=== PATIENT | male | born 1975 | race Caucasian/White ===

== ENCOUNTER 2018-11-12 22:02 | Emergency (ER) | payer MEDICAID ==
[~2018-11-12] VITALS: Ht 180.3 cm; Wt 104.3 kg
[2018-11-12 22:08] VITALS: BP_SYST 146
--- NOTE | 2018-11-12 22:12 | NUR ---
Patient triaged and placed in waiting room. VSS and patient appears in no acute distress at this time. Accompanied by family, awaiting available bed, and MD notified of need for MSE.
--- NOTE | 2018-11-12 22:14 | NUR ---
Patient to ER bed 07 for evaluation. Side rails up. Report given to Jackie AYALA.
--- NOTE | 2018-11-12 22:16 | NUR ---
Pt AAOx4 ambulated into ED c/o R great toenail avulsion s/p stubbing toe on metal bed frame prior to arrival. + CMS, denies pain, denies taking medication. Tetanus shot up to date. No other injuries/complaints per pt/noted. Will continue to monitor.
--- NOTE | 2018-11-12 23:00 | NUR ---
ER Dr. Peng at bedside examining patient.
[2018-11-12] MEDS ORDERED: MORPHINE 4 MG/ML INJ. SYRINGE IM ONE (23:15)
[2018-11-12] MEDS ORDERED: BACITRACIN 1 GM OINT TP ONE ×2 (23:29→23:30)
--- NOTE | 2018-11-12 23:42 | NUR ---
Patient's Right greater toe cleaned with Normal saline, Bacitracin applied and rolled gauze placed. Patient tolerated well. Will continue to monitor.
[2018-11-13 00:04] VITALS: BP_SYST 146
--- NOTE | 2018-11-13 00:04 | NUR ---
Patient given written and verbal discharge instructions and verbalizes understanding. ER MD discussed with patient the results and treatment provided. Patient in stable condition. ID arm band removed. Rx of Keflex and Motrin given. Patient educated on pain management and to follow up with PMD in 2-3 days. Pain Scale 0/10 Opportunity for questions provided and answered. Medication side effect fact sheet provided.
== END 2018-11-13 00:04 | disposition home or self-care (01) ==
LOC: SED 22:02
DX: S91.201A Unspecified open wound of right great toe with damage to nail, initial encounter (principal); W22.8XXA Striking against or struck by other objects, initial encounter; Y93.89 Activity, other specified; Y92.009 Unspecified place in unspecified non-institutional (private) residence as the place of occurrence of the external cause; Y99.8 Other external cause status
CPT/HCPCS: 73660; 96372; 99283; J2270

== ENCOUNTER 2019-07-12 03:46 | Emergency (ER) | payer MEDICAID ==
[~2019-07-12] VITALS: Ht 180.3 cm; Wt 108.9 kg
[2019-07-12 03:46] VITALS: BP_SYST 140
[2019-07-12] MEDS: KETOROLAC TROMETHAMINE 60 MG/2 ML VIAL IM ONE (04:19)
[2019-07-12 04:40] VITALS: BP_SYST 132
== END 2019-07-12 04:40 | disposition home or self-care (01) ==
LOC: SED 03:46
DX: R07.89 Other chest pain (principal)
CPT/HCPCS: 93005; 96372; 99283; J1885

== ENCOUNTER 2020-02-29 00:56 | Emergency (ER) | payer MEDICAID ==
[~2020-02-29] VITALS: Ht 180.3 cm; Wt 104.3 kg
[2020-02-29 01:00] VITALS: BP_SYST 140
--- NOTE | 2020-02-29 01:00 | NUR ---
Placed in room 7 . Placed on tug master, blood pressure machine and pulse oximeter. To gown for exam. Side rails up. Report given to Lissett AYALA.
--- NOTE | 2020-02-29 01:05 | NUR ---
PT AAO AND AMBULATORY C/O EPIGASTRIC PAIN THAT STARTED WEDNESDAY AND WORSENS WHEN HE LAYS DOWN TO SLEEP. PT TOOK PEPTO THIS MORNING WITHOUT RELIEF. PT REPORTS 7/10 PAIN SCALE.
--- NOTE | 2020-02-29 01:14 | NUR ---
ER at bedside examining patient.
[2020-02-29] MEDS ORDERED: NACL 0.9% 1,000 ML IV ONE (01:19)
[2020-02-29] MEDS ORDERED: PANTOPRAZOLE SODIUM 40 MG/VIAL (PROTONIX) IVP ONE (01:30)
[2020-02-29] MEDS ORDERED: MAG HYDROX/AL HYDROX/SIMETH 30 ML, DICYCLOMINE HCL 20 MG, LIDOCAINE VISCOUS 2% 15ML (PO... PO ONE ×3 (01:30)
--- NOTE | 2020-02-29 01:45 | NUR ---
PORTABLE XRAY DONE AT BEDSIDE
[2020-02-29 02:05] LABS: BILIRUBIN,URINE NEGATIVE (NEGATIVE); BLOOD, URINE NEGATIVE (NEGATIVE); CLARITY/URINE CLEAR (CLEAR); COLOR,URINE YELLOW (YELLOW); GLUCOSE,URINE NEGATIVE (NEGATIVE); KETONES,URINE NEGATIVE (NEGATIVE); LEUKOCYTE ESTERASE ,URINE NEGATIVE (NEGATIVE); NITRITE, URINE NEGATIVE (NEGATIVE); PH,URINE 6.5 (5.0-8.0); PROTEIN URINE NEGATIVE (NEGATIVE); UROBILINOGEN,URINE 0.2 (0.2-1.0)
[2020-02-29 02:07] LABS: BASOPHILS # (AUTO) 0.1 K/uL (0.0-0.2); BASOPHILS % (AUTO) 0.7 % (0.0-2.0); EOSINOPHILS # (AUTO) 0.1 K/uL (0.0-0.4); EOSINOPHILS % (AUTO) 1.5 % (0.0-4.0); HEMATOCRIT 42.2 % (36-54); HEMOGLOBIN 13.9 g/dL (14.0-18.0); LYMPHOCYTES # (AUTO) 3.4 K/uL (1.0-5.5); LYMPHOCYTES % (AUTO) 44.9 % (20.5-51.5); MEAN CORPUSCULAR HEMOGLOBIN 29 pg (27-31); MEAN CORPUSCULAR HGB CONC 33 % (32-36); MEAN CORPUSCULAR VOLUME 89 fL (79.0-98.0); MONOCYTES # (AUTO) 0.4 K/uL (0.0-1.0); MONOCYTES % (AUTO) 5.2 % (1.7-9.3); NEUTROPHILS # (AUTO) 3.6 K/uL (1.8-7.7); NEUTROPHILS % (AUTO) 47.7 % (40.0-70.0); PLATELET COUNT (AUTO) 177 K/uL (130-430); RED BLOOD CELL COUNT(AUTO) 4.74 MIL/uL (4.2-6.2); RED CELL DISTRIBUTION WIDTH 13.4 % (9.0-15.0); WHITE BLOOD COUNT (AUTO) 7.6 K/uL (4.8-10.8)
[2020-02-29 02:24] LABS: CALCIUM 9.2 mg/dL (8.4-11.0); CREATININE 0.94 mg/dL (0.55-1.30); POTASSIUM 3.8 mmol/L (3.5-5.1)
[2020-02-29 02:28] LABS: TOTAL BILIRUBIN 0.3 mg/dL (0.0-1.0)
--- NOTE | 2020-02-29 02:30 | NUR ---
PT RESTING QUIETLY IN NO DISTRESS AND AWAITING DISPOSITION.
[2020-02-29 03:09] VITALS: BP_SYST 140
--- NOTE | 2020-02-29 03:10 | NUR ---
Patient given written and verbal discharge instructions and verbalizes understanding. DR. RAMU RANGEL MD discussed with patient the results and treatment provided. Patient in stable condition. ID arm band removed. IV catheter removed intact and dressing applied, no active bleeding. Rx of PROTONIX AND BENTYL given. Patient educated on pain management and to follow up with PMD. Pain Scale 0/10. Opportunity for questions provided and answered. Medication side effect fact sheet provided.
== END 2020-02-29 03:09 | disposition home or self-care (01) ==
LOC: SED 00:56
DX: K29.60 Other gastritis without bleeding (principal); R10.13 Epigastric pain; I10 Essential (primary) hypertension
CPT/HCPCS: 36415; 71045; 80053; 81003; 83690; 83880; 84484; 85025; 93005; 96361; 96374; 99285; C9113; J2001; J7030

== ENCOUNTER 2023-05-09 21:48 | Emergency (ER) | payer MEDICAID, OTHER | END 2023-05-09 22:06 | disposition left against medical advice (07) | LOC: SED 21:48 | DX: R07.89 Other chest pain (principal); Z53.21 Procedure and treatment not carried out due to patient leaving prior to being seen by health care provider ==

== ENCOUNTER 2023-07-19 00:28 | Emergency (ER) | payer OTHER ==
[~2023-07-19] VITALS: Ht 180.3 cm; Wt 102.1 kg
[2023-07-19 00:30] VITALS: BP_SYST 161; PULSE 64; RESP 20; TEMP 98.8; O2SAT 98
[2023-07-19] MEDS: MAG-AL HYDROX/SIMETH 30 ML UDC PO ONE (01:17)
[2023-07-19] MEDS: FAMOTIDINE PF 20 MG/2 ML VIAL IVP ONE (01:27)
[2023-07-19 01:38] LABS: EOSINOPHILS # (AUTO) 0.1 K/uL (0.0-0.4); HEMOGLOBIN 13.4 g/dL (14.0-18.0); MONOCYTES # (AUTO) 0.4 K/uL (0.0-1.0); NEUTROPHILS # (AUTO) 3.7 K/uL (1.8-7.7)
[2023-07-19 01:47] LABS: BASOPHILS % (AUTO) 0.5 % (0.0-2.0); EOSINOPHILS % (AUTO) 1.1 % (0.0-4.0); HEMATOCRIT 39.6 % (36-54); LYMPHOCYTES # (AUTO) 3.3 K/uL (1.0-5.5); LYMPHOCYTES % (AUTO) 43.5 % (20.5-51.5); MEAN CORPUSCULAR HEMOGLOBIN 30 pg (27-31); MEAN CORPUSCULAR HGB CONC 34 % (32-36); MEAN CORPUSCULAR VOLUME 89 fL (79.0-98.0); MONOCYTES % (AUTO) 5.6 % (1.7-9.3); NEUTROPHILS % (AUTO) 49.3 % (40.0-70.0); PLATELET COUNT (AUTO) 178 K/uL (130-430); RED BLOOD CELL COUNT(AUTO) 4.45 MIL/uL (4.2-6.2); RED CELL DISTRIBUTION WIDTH 13.4 % (9.0-15.0); WHITE BLOOD COUNT (AUTO) 7.6 K/uL (4.8-10.8)
[2023-07-19 02:01] LABS: ALANINE AMINOTRANSFERASE 30 U/L (12-78); ALBUMIN 3.8 g/dL (3.4-4.8); ANION GAP 10 (5-15); ASPARTATE AMINOTRANSFERASE 21 U/L (10-37); CALCIUM 8.6 mg/dL (8.4-11.0); CARBON DIOXIDE 27 mmol/L (23-29); CHLORIDE 105 mmol/L (98-107); CREATININE 0.95 mg/dL (0.55-1.30); GFR AFRICAN AMERICAN 110 mL/min (>90); GFR NON AFRICAN-AMERICAN 91 mL/min (>90); GLUCOSE 97 mg/dL (74-106); POTASSIUM 4.1 mmol/L (3.5-5.1); SODIUM SERUM 142 mmol/L (136-145); TOTAL BILIRUBIN 0.3 mg/dL (0.0-1.0); TOTAL PROTEIN, SERUM 7.3 g/dL (6.4-8.3); UREA NITROGEN, BLOOD 14 mg/dL (8-21)
[2023-07-19 02:03] LABS: BILIRUBIN,DIRECT 0.1 mg/dL (0.0-0.3); LIPASE 98 U/L (16-77)
[2023-07-19] MEDS ORDERED: MORPHINE 2 MG/ML INJ. SYRINGE IVP ONE (02:30)
[2023-07-19] MEDS: MORPHINE 4 MG INJ. 4 MG/ML VIAL IVP ONE (02:47)
[2023-07-19 03:44] VITALS: BP_SYST 135; PULSE 70; RESP 18; TEMP 97.8; O2SAT 98
== END 2023-07-19 03:44 | disposition home or self-care (01) ==
LOC: SED 00:28
DX: R10.13 Epigastric pain (principal); R74.8 Abnormal levels of other serum enzymes; Z88.1 Allergy status to other antibiotic agents
CPT/HCPCS: 99285; 96374; 76705; 71045; 96375; 80076; 80048; 83690; 85025; 84484; 36415; 93005; J3490; J2270

== ENCOUNTER 2024-01-01 10:27 | Emergency (ER) | payer OTHER ==
[~2024-01-01] VITALS: Ht 180.3 cm; Wt 103.4 kg
[2024-01-01 10:27] VITALS: BP_SYST 124; PULSE 70; RESP 18; TEMP 97.2; O2SAT 95
[2024-01-01 11:05] LABS: BASOPHILS % (AUTO) 0.5 % (0.0-2.0); EOSINOPHILS # (AUTO) 0.1 K/uL (0.0-0.4); EOSINOPHILS % (AUTO) 1.4 % (0.0-4.0); HEMATOCRIT 43.4 % (36-54); HEMOGLOBIN 14.3 g/dL (14.0-18.0); LYMPHOCYTES # (AUTO) 2.7 K/uL (1.0-5.5); LYMPHOCYTES % (AUTO) 41.7 % (20.5-51.5); MEAN CORPUSCULAR HEMOGLOBIN 29 pg (27-31); MEAN CORPUSCULAR HGB CONC 33 % (32-36); MEAN CORPUSCULAR VOLUME 89 fL (79.0-98.0); MONOCYTES # (AUTO) 0.4 K/uL (0.0-1.0); MONOCYTES % (AUTO) 5.7 % (1.7-9.3); NEUTROPHILS # (AUTO) 3.3 K/uL (1.8-7.7); NEUTROPHILS % (AUTO) 50.7 % (40.0-70.0); PLATELET COUNT (AUTO) 189 K/uL (130-430); RED BLOOD CELL COUNT(AUTO) 4.87 MIL/uL (4.2-6.2); RED CELL DISTRIBUTION WIDTH 13.2 % (9.0-15.0); WHITE BLOOD COUNT (AUTO) 6.4 K/uL (4.8-10.8)
[2024-01-01 11:21] LABS: ANION GAP 6 (5-15); CALCIUM 9.3 mg/dL (8.4-11.0); CARBON DIOXIDE 30 mmol/L (23-29); CHLORIDE 102 mmol/L (98-107); CREATININE 0.98 mg/dL (0.55-1.30); GFR AFRICAN AMERICAN 105 mL/min (>90); GLUCOSE 105 mg/dL (74-106); POTASSIUM 3.9 mmol/L (3.5-5.1); SODIUM SERUM 138 mmol/L (136-145); UREA NITROGEN, BLOOD 14 mg/dL (8-21)
[2024-01-01 11:24] LABS: GFR NON AFRICAN-AMERICAN 87 mL/min (>90)
[2024-01-01 11:26] LABS: PROTHROMBIN TIME 10.6 SECS (9.5-12.5)
[2024-01-01 11:52] VITALS: BP_SYST 124; PULSE 70; RESP 18; TEMP 97.2; O2SAT 95
== END 2024-01-01 11:52 | disposition home or self-care (01) ==
LOC: SED 10:27
DX: F41.9 Anxiety disorder, unspecified (principal); R07.2 Precordial pain; R06.02 Shortness of breath; Z88.1 Allergy status to other antibiotic agents
CPT/HCPCS: 36415; 71045; 80048; 83880; 84484; 85025; 85379; 85610; 85730; 93005; 99285

== ENCOUNTER 2024-03-21 13:08 | Emergency (ER) | payer OTHER ==
[~2024-03-21] VITALS: Ht 180.3 cm; Wt 104.3 kg
[2024-03-21 13:11] VITALS: BP_SYST 126; PULSE 77; RESP 17; TEMP 97.4; O2SAT 99
[2024-03-21] MEDS ORDERED: METHYLPREDNISOLONE SOD SUCC 40 MG/ML VIAL IVP ONE (13:45)
[2024-03-21] MEDS: ALBUTEROL SULFATE 0.083% 2.5 MG/3 ML VIAL.NEB INH ONE (13:50)
[2024-03-21 13:53] LABS: BASOPHILS % (AUTO) 0.5 % (0.0-2.0); EOSINOPHILS # (AUTO) 0.1 K/uL (0.0-0.4); EOSINOPHILS % (AUTO) 0.9 % (0.0-4.0); HEMATOCRIT 42.8 % (36-54); HEMOGLOBIN 14.1 g/dL (14.0-18.0); LYMPHOCYTES # (AUTO) 2.5 K/uL (1.0-5.5); LYMPHOCYTES % (AUTO) 43.1 % (20.5-51.5); MEAN CORPUSCULAR HEMOGLOBIN 30 pg (27-31); MEAN CORPUSCULAR HGB CONC 33 % (32-36); MEAN CORPUSCULAR VOLUME 90 fL (79.0-98.0); MONOCYTES # (AUTO) 0.3 K/uL (0.0-1.0); MONOCYTES % (AUTO) 5.4 % (1.7-9.3); NEUTROPHILS # (AUTO) 2.9 K/uL (1.8-7.7); NEUTROPHILS % (AUTO) 50.1 % (40.0-70.0); PLATELET COUNT (AUTO) 190 K/uL (130-430); RED BLOOD CELL COUNT(AUTO) 4.77 MIL/uL (4.2-6.2); RED CELL DISTRIBUTION WIDTH 13.6 % (9.0-15.0); WHITE BLOOD COUNT (AUTO) 5.7 K/uL (4.8-10.8)
[2024-03-21 14:11] LABS: ANION GAP 6 (5-15); CALCIUM 9.3 mg/dL (8.4-11.0); CARBON DIOXIDE 30 mmol/L (23-29); CHLORIDE 106 mmol/L (98-107); CREATININE 0.99 mg/dL (0.55-1.30); GFR AFRICAN AMERICAN 104 mL/min (>90); GLUCOSE 105 mg/dL (74-106); POTASSIUM 3.9 mmol/L (3.5-5.1); SODIUM SERUM 142 mmol/L (136-145); UREA NITROGEN, BLOOD 14 mg/dL (8-21)
[2024-03-21 14:12] LABS: GFR NON AFRICAN-AMERICAN 86 mL/min (>90)
[2024-03-21] MEDS ORDERED: ALBMDI INH (14:35)
[2024-03-21 15:03] VITALS: BP_SYST 130; PULSE 77; RESP 17; TEMP 97.4; O2SAT 98
== END 2024-03-21 15:02 | disposition home or self-care (01) ==
LOC: SED 13:08
DX: R06.00 Dyspnea, unspecified (principal); Z88.1 Allergy status to other antibiotic agents
CPT/HCPCS: 36415; 71045; 80048; 83880; 84484; 85025; 93005; 94640; 94760; 99285